=== PATIENT | female | born 1955 | race Caucasian/White ===

== ENCOUNTER 2017-08-10 22:02 | Emergency (ER) | payer OTHER ==
[~2017-08-10] VITALS: Ht 177.8 cm; Wt 117.9 kg
[~2017-08-10 22:02] MED LIST: ALBU3IS INH; ALBU90OI; ALBU90OI INH; AMOCLA500 PO; ASPI325 PO; AZIT250 PO; BUDE6HFA INH; CARV6.25 PO; CIPR500 PO; CLOP75 PO; FLUC150A PO; HYDACE5 PO; IBUP800; Keflex500 MG PO; METO25ER PO; METR250 PO; METR500 PO; Metoprolol Tart25 MG PO; NAPR375 PO; OXYACE5T PO; PRED20 PO; SIMV10 PO; TRAZ50 PO
[2017-08-11] MEDS ORDERED: Prednisone20 MG PO (00:57)
[2017-08-11] MEDS ORDERED: Norco 10-325 T1 EACH PO (00:57)
== END 2017-08-11 01:40 | disposition home or self-care (01) ==
LOC: ER 22:02
DX: M54.40 Lumbago with sciatica, unspecified side (principal); Z79.899 Other long term (current) drug therapy; Z79.82 Long term (current) use of aspirin; Z79.2 Long term (current) use of antibiotics; I25.2 Old myocardial infarction; J45.909 Unspecified asthma, uncomplicated; E11.9 Type 2 diabetes mellitus without complications; Z87.891 Personal history of nicotine dependence
CPT/HCPCS: 96372; 99283; J1885

== ENCOUNTER 2019-02-02 12:19 | Inpatient (IN) | payer MEDICARE ==
[~2019-02-02] VITALS: Ht 177.8 cm; Wt 118.3 kg
[~2019-02-02 12:19] MED LIST changes: +Norco 10-325 T1 EACH PO; +Prednisone20 MG PO
[2019-02-02 13:29] LABS: Alanine Aminotransfer (ALT/SGP 30 U/L (12-78); Albumin, Blood 3.6 g/dL (3.4-5.0); Albumin/Globulin Ratio 0.9 (0.8-1.8); Alk Phos 80 U/L (50-136); Anion Gap 6 mmol/L (6-16); Aspartate Aminotrans (AST/SGOT 16 U/L (12-37); Bilirubin, Total 0.3 mg/dL (0.1-1.0); Blood Urea Nitrogen 12 mg/dL (8-24); Bun/Creatinine Ratio 15.5 (12.0-20.0); CO2, Blood 26 mmol/L (21-32); Calcium, Blood 9.5 mg/dL (8.5-10.1); Chloride, Blood 103 mmol/L (98-108); Creatinine, Blood 0.78 mg/dL (0.40-1.00); Glomerular Filtration Rate >60 (60-); Glucose, Blood 265 mg/dL (70-99); Potassium, Blood 5.1 mmol/L (3.5-5.5); Sodium, Blood 135 mmol/L (136-145); Total Protein, Blood 7.6 g/dL (6.4-8.2); Troponin I 0.067 ng/mL (0.000-0.040)
[2019-02-02 13:46] LABS: BASOPHILS ABSOLUTE AUTO 0.08 K/mm3 (0.00-0.23); BASOPHILS PERCENT AUTO 1 % (0-2); EOSINOPHILS ABSOLUTE AUTO 0.26 K/mm3 (0.00-0.68); EOSINOPHILS PERCENT AUTO 2 % (0-6); Hematocrit 40.2 % (33.0-51.0); IMMATURE GRAN ABSOLUTE AUTO 0.06 K/mm3 (0.00-0.10); IMMATURE GRAN PERCENT AUTO 1 % (0-1); LYMPHOCYTES ABSOLUTE AUTO 3.38 K/mm3 (0.84-5.20); LYMPHOCYTES PERCENT AUTO 31 % (21-46); MONOCYTES ABSOLUTE AUTO 0.84 K/mm3 (0.16-1.47); MONOCYTES PERCENT AUTO 8 % (4-13); Mean Corpuscular HGB 28.9 pg (26.0-34.0); Mean Corpuscular HGB Conc 32.3 g/dL (31.5-36.5); Mean Corpuscular Volume 89 fL (80-100); Mean Platelet Volume 10.4 fL (9.1-12.4); NEUTROPHILS ABSOLUTE AUTO 6.23 K/mm3 (1.96-9.15); NEUTROPHILS PERCENT AUTO 57 % (41-73); Platelet Count 279 K/mm3 (150-400); RDW Coefficient Variation 12.3 % (11.7-14.2); RDW Standard Deviation 39.8 fL (35.1-46.3); White Blood Cell Count 10.85 K/mm3 (4.00-11.30)
[2019-02-02 14:03] LABS: International Normalized Ratio 0.91; Prothrombin Time Results 9.7 Sec (9.7-11.5)
--- NOTE | 2019-02-02 15:40 | NUR ---
ARRIVAL TO ICU PT. ARRIVES TO ICU AT THIS TIME. PT ALERT AND ORIENTED UPON ARRIVAL. PT. DENIES ANY CHEST PAIN AT THIS TIME. HAS NITRO PATCH IN PLACE. PT. PALE IN COLOR, DIAPHORETIC. PT. VSS UPON ARRIVAL TO ICU. PT. REPORTS CHEST PAIN WHEN LAYING FLAT, AND WITH EXCERTION. PT. CURRENTLY ON 2LNC AT THIS TIME, REPORTS AT HOME SHE DOES NOT WEAR O2, SPO2 98%. PT. HR 80S, PT PLACED ON DENIAL RESOLUTION SPECIALIST UPON ARRIVAL. DEFIB PADS REMAIN IN PLACE. PT HAS TR BAND IN PLACE TO RIGHT WRIST. 11CC OF AIR IN BAND AT THIS TIME. SITE STABLE. PT EDUCATED ON USE OF ARM. CALL LIGHT IN REACH, BED IN LOW POSITION.
--- NOTE | 2019-02-02 15:45 | NUR ---
HEPARIN GTT STARTED PER ORDER AT 13U/KG/HR
--- NOTE | 2019-02-02 16:19 | NUR ---
CALL TO DR. MORTENSEN CALLED; PT FAMILY WISHES TO HAVE SURGERY IN [place]. NOTIFIED.
--- NOTE | 2019-02-02 16:26 | NUR ---
DR. RED IN TO SEE PT.
--- NOTE | 2019-02-02 17:19 | NUR ---
CALL TO [facility] FOR REPORT REPORT GIVEN TO BRYAN DIALLO. PT. TO BE TRANSPORTED ON HEPARIN GTT PER DR. ORDER. SALVADOR. MAP AND DIRECTIONS GIVEN TO PT ALONG WITH ROOM NUMBER.
--- NOTE | 2019-02-02 18:00 | NUR ---
[facility] HERE FOR TRANSPORT. PAPERS AND DISC TAKEN WITH PT ALONG WITH ALL BELONGINGS. PT VSS UPON DEPARTURE.
== END 2019-02-02 18:05 | disposition short-term general hospital (02) | DRG 282 ==
LOC: ER 12:19 → ICUW 13:24 → ICUE 13:24
PROVIDERS: Emergency Medicine; ADMIT Internal Medicine Endocrinology, Diabetes & Metabolism
PROC: B2111ZZ Fluoroscopy of Multiple Coronary Arteries using Low Osmolar Contrast (ICD-10-PCS; principal; 2019-02-02)
DX: I21.4 Non-ST elevation (NSTEMI) myocardial infarction (principal); Z87.891 Personal history of nicotine dependence; I25.2 Old myocardial infarction; Z95.5 Presence of coronary angioplasty implant and graft; I25.10 Atherosclerotic heart disease of native coronary artery without angina pectoris; E66.01 Morbid (severe) obesity due to excess calories; Z68.35 Body mass index [BMI] 35.0-35.9, adult; J44.9 Chronic obstructive pulmonary disease, unspecified; Z79.82 Long term (current) use of aspirin; G47.33 Obstructive sleep apnea (adult) (pediatric); I10 Essential (primary) hypertension; I35.0 Nonrheumatic aortic (valve) stenosis; K21.9 Gastro-esophageal reflux disease without esophagitis; E11.40 Type 2 diabetes mellitus with diabetic neuropathy, unspecified; Z79.84 Long term (current) use of oral hypoglycemic drugs; E11.65 Type 2 diabetes mellitus with hyperglycemia; E11.51 Type 2 diabetes mellitus with diabetic peripheral angiopathy without gangrene
CPT/HCPCS: 36415; 71046; 80053; 83880; 84484; 85025; 85610; 85730; 93005; 93010; 93306; 93454; 99152; 99153; 99285-25; C1769; C1894; J1644; J2250; J3010; J7030; Q9967

== ENCOUNTER 2019-05-27 18:17 | Inpatient (IN) | payer MEDICARE ==
[~2019-05-27] VITALS: Ht 177.8 cm; Wt 106.2 kg
[2019-05-27] MEDS ORDERED: BASAGLAR K100 UNIT/1 SC (20:00)
[2019-05-27] MEDS ORDERED: CLOP75 (20:00)
[2019-05-27] MEDS ORDERED: ONE TOUCH VERI1 EACH (20:00)
[2019-05-27] MEDS ORDERED: Lopressor 50 mg50 MG GT (20:00)
[2019-05-27] MEDS ORDERED: SITA100T2 PO (20:00)
[2019-05-27 20:31] LABS: BASOPHILS ABSOLUTE AUTO 0.05 K/mm3 (0.00-0.23); BASOPHILS PERCENT AUTO 0 % (0-2); EOSINOPHILS ABSOLUTE AUTO 0.16 K/mm3 (0.00-0.68); EOSINOPHILS PERCENT AUTO 1 % (0-6); Hematocrit 33.5 % (33.0-51.0); Hemoglobin 10.1 g/dL (11.5-16.0); IMMATURE GRAN ABSOLUTE AUTO 0.09 K/mm3 (0.00-0.10); IMMATURE GRAN PERCENT AUTO 1 % (0-1); LYMPHOCYTES ABSOLUTE AUTO 3.05 K/mm3 (0.84-5.20); LYMPHOCYTES PERCENT AUTO 24 % (21-46); MONOCYTES ABSOLUTE AUTO 1.22 K/mm3 (0.16-1.47); MONOCYTES PERCENT AUTO 10 % (4-13); Mean Corpuscular HGB 24.1 pg (26.0-34.0); Mean Corpuscular HGB Conc 30.1 g/dL (31.5-36.5); Mean Corpuscular Volume 80 fL (80-100); Mean Platelet Volume 9.5 fL (9.1-12.4); NEUTROPHILS ABSOLUTE AUTO 7.98 K/mm3 (1.96-9.15); NEUTROPHILS PERCENT AUTO 64 % (41-73); Platelet Count 350 K/mm3 (150-400); RDW Coefficient Variation 15.2 % (11.7-14.2); RDW Standard Deviation 43.7 fL (35.1-46.3); Red Blood Cell Count 4.19 M/mm3 (3.80-5.20); White Blood Cell Count 12.55 K/mm3 (4.00-11.30)
[2019-05-27 20:56] LABS: Alanine Aminotransfer (ALT/SGP 56 U/L (12-78); Albumin, Blood 3.1 g/dL (3.4-5.0); Albumin/Globulin Ratio 0.7 (0.8-1.8); Alk Phos 147 U/L (50-136); Anion Gap 8 mmol/L (6-16); Aspartate Aminotrans (AST/SGOT 24 U/L (12-37); Bilirubin, Total 0.3 mg/dL (0.1-1.0); Blood Urea Nitrogen 17 mg/dL (8-24); Bun/Creatinine Ratio 18.5 (12.0-20.0); CO2, Blood 22 mmol/L (21-32); Calcium, Blood 9.1 mg/dL (8.5-10.1); Chloride, Blood 108 mmol/L (98-108); Creatinine, Blood 0.92 mg/dL (0.40-1.00); Globulin, Blood 4.5 g/dL (2.2-4.0); Glomerular Filtration Rate >60 (60-); Glucose, Blood 97 mg/dL (70-99); Potassium, Blood 3.9 mmol/L (3.5-5.5); Sodium, Blood 138 mmol/L (136-145); Total Protein, Blood 7.6 g/dL (6.4-8.2); Troponin I <0.015 ng/mL (0.000-0.040)
--- NOTE | 2019-05-27 22:50 | NUR ---
RECEIVED REPORT FROM HAYLEY MOTTA RN. PT ARRIVED TO 326 VIA GURNEY. PT WAS ABLE TO AMBULATE TO BED, VERY SOB WITH EXERTION, SHALLOW BREATHS, NOT ON 02. STATES SHE'S BEEN SOB SINCE HER TRIPLE BYPASS FEBRUARY 03 OF THIS YEAR, HOWEVER IT'S WORSEN IN THE LAST FOUR DAYS. A/O. ABLE TO ANSWER QUESTIONS REGARDING MEDS AND HEALTH HISTORY APPROPRIATELY. ORIENTED PT TO CALL LT SYSTEM AND ENCOURAGED PT TO USE FWW DURING AMBULATION, PT STATES SHE USED A WALKER WHILE AT [facility].
[2019-05-27] MEDS ORDERED: OMEPRAZOLE20 MG PO (23:21)
[2019-05-27] MEDS ORDERED: METF500 PO (23:21)
--- NOTE | 2019-05-28 01:31 | NUR ---
PT STATES STILL SO SOB WHILE AT REST, RT IN TO GIVE PT A BREATHING TREATMENT. WILL MONITOR. CALL LT IN REACH.
--- NOTE | 2019-05-28 03:22 | NUR ---
PT RESTING QUIETLY LYING ON LEFT SIDE. RESP EVEN ON 2L VIA NC. CALL LT IN REACH.
[2019-05-28 03:41] LABS: BASOPHILS ABSOLUTE AUTO 0.07 K/mm3 (0.00-0.23); BASOPHILS PERCENT AUTO 1 % (0-2); EOSINOPHILS ABSOLUTE AUTO 0.15 K/mm3 (0.00-0.68); EOSINOPHILS PERCENT AUTO 1 % (0-6); Hematocrit 34.3 % (33.0-51.0); Hemoglobin 10.2 g/dL (11.5-16.0); IMMATURE GRAN ABSOLUTE AUTO 0.07 K/mm3 (0.00-0.10); IMMATURE GRAN PERCENT AUTO 1 % (0-1); LYMPHOCYTES ABSOLUTE AUTO 3.13 K/mm3 (0.84-5.20); LYMPHOCYTES PERCENT AUTO 25 % (21-46); MONOCYTES ABSOLUTE AUTO 1.26 K/mm3 (0.16-1.47); MONOCYTES PERCENT AUTO 10 % (4-13); Mean Corpuscular HGB 24.1 pg (26.0-34.0); Mean Corpuscular HGB Conc 29.7 g/dL (31.5-36.5); Mean Corpuscular Volume 81 fL (80-100); Mean Platelet Volume 9.6 fL (9.1-12.4); NEUTROPHILS ABSOLUTE AUTO 7.62 K/mm3 (1.96-9.15); NEUTROPHILS PERCENT AUTO 62 % (41-73); Platelet Count 316 K/mm3 (150-400); RDW Coefficient Variation 15.5 % (11.7-14.2); RDW Standard Deviation 45.1 fL (35.1-46.3); Red Blood Cell Count 4.24 M/mm3 (3.80-5.20)
[2019-05-28 03:54] LABS: Bun/Creatinine Ratio 18.1 (12.0-20.0); Calcium, Blood 8.9 mg/dL (8.5-10.1); Creatinine, Blood 1.05 mg/dL (0.40-1.00); Potassium, Blood 3.7 mmol/L (3.5-5.5)
--- NOTE | 2019-05-28 05:01 | NUR ---
PT STATES THAT AFTER HAVING THE BREATHING TREATMENT GIVEN TO HER EARLIER IT SEEMED TO HELP BUT IT DIDN'T LAST VERY LONG. STATES SHE'S STILL PRETTY SOB. NOW ON 2L VIA NC. WILL MONITOR.
--- NOTE | 2019-05-28 05:02 | NUR ---
SHIFT SUMMARY: ER ADMIT AT 2250. A/O. INDEPENDENT TO BSC USING FWW. VERY SOB WITH ANY EXERTION. CURRENTLY ON 2L VIA NC. BASELINE IS RA. 40 MG IV LASIX GIVEN AT ADMIT FOR A BNP OF 483, URINE OUTPUT 925. RECEIVED BREATHING TREATMENTS AND STATES EASIER TO BREATHE AFTERWARDS. SOME CHRONIC PAIN ALL OVER. WILL CONTINUE TO MONITOR AND PROVIDE CARE UNTIL SHIFT REPORT TO ONCOMING NURSE.
--- NOTE | 2019-05-28 11:33 | NUR ---
Echocardiogram completed. Dr Sousa briefed on potential findings of tamponade.
--- NOTE | 2019-05-28 12:14 | NUR ---
ECHO COMPLETED, DR. KEENAN IN TO SEE PT AND DISCUSS PLAN OF CARE. PLAN IS TO [place] TRANSFER TO [facility] WHEN AVAILABLE. DR. KEENAN THAT THE PT DOES NOT NEED TO TRANSFER TO HIGHER LEVEL OF CARE AT THIS TIME.
[2019-05-28 12:39] LABS: Percent Saturation 7.3 % (15.0-50.0)
--- NOTE | 2019-05-28 13:47 | NUR ---
1335 PT COBRA TRANSFERED VIA [facility] TO [facility]. PT SELF TRANSFERRED TO [facility] WITHOUT ISSUE. 20G IV R FA PATENT WITH DRESSING INTACT, SL. AT BEDSIDE AT TIME OF TRANSFER. TRANSFER PACKET GIVEN TO AMBULENCE VAMP MAKER. BELONGINGS WITH PT. [id number] REPORT CALLED TO [facility].
== END 2019-05-28 13:35 | disposition short-term general hospital (02) | DRG 187 ==
LOC: ER 18:17 → MEDS 22:07
PROVIDERS: Internal Medicine Cardiovascular Disease; Physician Assistant; ADMIT Hospitalist
DX: J90 Pleural effusion, not elsewhere classified (principal); I31.4 Cardiac tamponade; I50.20 Unspecified systolic (congestive) heart failure; Z95.1 Presence of aortocoronary bypass graft; R91.1 Solitary pulmonary nodule; Z79.4 Long term (current) use of insulin; J44.9 Chronic obstructive pulmonary disease, unspecified; K21.9 Gastro-esophageal reflux disease without esophagitis; E11.42 Type 2 diabetes mellitus with diabetic polyneuropathy; I25.10 Atherosclerotic heart disease of native coronary artery without angina pectoris; Z87.891 Personal history of nicotine dependence; I11.0 Hypertensive heart disease with heart failure; D50.0 Iron deficiency anemia secondary to blood loss (chronic)
CPT/HCPCS: 36415; 71046; 80048; 80053; 82728; 82947; 83540; 83550; 83880; 84484; 85025; 93005; 93010; 93306; 94640; 94760; 99285-25; A9270; J1940